=== PATIENT | male | born 1970 | race Caucasian/White ===

== ENCOUNTER → 2016-09-30 | Outpatient (CLI) | payer OTHER ==
[~2016-09-30] MED LIST: ALLO300T2 PO; PANT40TA PO
== END | disposition home or self-care (01) ==
LOC: C.PATHSPEC 14:01
PROVIDERS: ATTEND Orthopaedic Surgery
DX: D21.11 Benign neoplasm of connective and other soft tissue of right upper limb, including shoulder (principal)